=== PATIENT | male | born 1955 | race Caucasian/White ===

== ENCOUNTER 2024-04-13 14:53 | Emergency (ER) | payer MEDICARE, OTHER, SELFPAY ==
[2024-04-13 15:02] VITALS: BP 147/67
[2024-04-13 15:46] LABS: % Basophils 0.4 % (0-2); % Eosinophils 1.5 % (0-6); % Immature Granulocytes 0.3 % (0-0.5); % Lymphocytes 16.1 % (20.5-51.1); % Monocytes 7.6 % (1.7-9.3); % Neutrophils 74.1 % (42.2-75.2); Absolute Eosinophils 0.2 10^3/uL (0-0.7); Absolute Lymphocytes 1.8 10^3/uL (1.2-3.4); Absolute Monocytes 0.8 10^3/uL (0.1-0.6); Absolute Neutrophils 8.1 10^3/uL (1.4-6.5); Hematocrit 44.7 % (39.0-52.0); Mean Corp Hgb Conc. 33.6 g/dL (33.0-37.0); Mean Corpuscular Hgb 30.3 pg (27.0-31.0); Mean Corpuscular Volume 90.3 fL (80.0-94.0); Mean Platelet Volume 10.7 fL (7.4-10.4); Nucleated Red Blood Cells % 0 % (-); Platelet Count 175 10^3/uL (130-400); Red Blood Cell Count 4.95 10^6/uL (4.70-6.10); Red Cell Dist. Width 12.5 % (11.5-14.5); White Blood Cell Count 10.9 10^3/uL (4.8-10.8)
[2024-04-13 16:08] LABS: ALT (SGPT) 29 U/L (0-50); AST (SGOT) 25 U/L (17-59); Albumin 4.4 g/dl (3.5-5.0); Alkaline Phosphatase 113 U/L (38-126); Blood Urea Nitrogen 24 mg/dl (9-20); Carbon Dioxide 25 mmol/L (22-30); Chloride 102 mmol/L (98-107); Glucose 186 mg/dl (70-99); Potassium 4.4 mmol/L (3.5-5.1); Sodium 136 mmol/L (135-145); Total Bilirubin 0.7 mg/dl (0.2-1.3); Total Protein 7.1 g/dl (6.3-8.2); eGFR > 60.00
[2024-04-13 16:21] LABS: Troponin I < 0.012 ng/ml
[2024-04-13 16:48] VITALS: BP 125/55
[2024-04-13 17:00] VITALS: BP 105/60
--- NOTE | 2024-04-13 17:19 | ED.GENMED ---
History of Present Illness
General
Chief Complaint: Fainting/Passed Out
Source: patient and spouse
Time Seen by Provider: 04/13/24 17:06
History of Present Illness
History of Present Illness:
This patient is a 69-year-old male who was outdoors at an event for much of the day, states that he was drinking some water, walking around, and it was very hot. As he was waiting for the shuttle bus he started to feel like he might pass out
described as feeling lightheaded and his vision was starting to narrow. Anticipating that he might he gently lowered himself down to the ground. Within a few minutes his symptoms resolved. He denies associated syncope, head strike, neck pain,
headache, chest pain, palpitations, dyspnea, abdominal pain, nausea, vomiting, or other complaints. He states that as soon as he got into the ambulance he already started to feel better as he was in the cool air. He is asymptomatic at this time.
Past History
Past History
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
ED Past Surgical History: Orthopedic and Other (Hernia repair, partial nephrectomy)
Social History
Tobacco: Other (Occasional cigar)
Alcohol: Occasional
Drug: None
Personal:
Living: with family
Phy Exam
Physical Exam
Physical Exam:
GENERAL: Alert , in no apparent distress
EYE: pupils equal and reactive, EOMI, no nystagmus
NECK: Supple, no significant adenopathy.
ENT: o/p clr, mmm.
CARDIAC: Regular rate and rhythm .
LUNGS: Clear breath sounds bilaterally, no acute respiratory distress, no wheezes/rales/rhonchi
ABDOMEN: Soft, without focal tenderness, no r/g, no cvat
NEUROLOGICAL: Alert and oriented, no focal neuro deficits, cranial nerves II through XII intact, [id number] normal, motor 5 out of 5, sensory intact to light touch
SKIN: Warm and dry, skin intact.
MUSCULOSKELETAL: 1+ bilateral lower extremity edema, well perfused.
PSYCH: Normal and appropriate interaction.
Course
Orders/Labs/Results
Orders:
Orders
04/13/24 15:08
Electrocardiogram (*1) Urgent
Reason for Study: Syncope
04/13/24 15:09
EKG- Treatment ONCE
04/13/24 15:38
CMP [Comprehensive Metabolic Panel] Urgent
Complete Blood Count/With Diff Urgent
Troponin I Urgent
Abnormal Lab Results
04/13/24
15:38
WBC 10.9 H 10^3/uL
(4.8-10.8)
MPV 10.7 H fL
(7.4-10.4)
Absolute Neuts (auto) 8.1 H 10^3/uL
(1.4-6.5)
Absolute Monos (auto) 0.8 H 10^3/uL
(0.1-0.6)
Lymphocytes % 16.1 L %
(20.5-51.1)
BUN 24 H mg/dl
(9-20)
Glucose 186 H mg/dl
(70-99)
04/13/24 15:38
04/13/24 15:38
Vital Signs
Initial and Last Documented VS:
Initial Vital Signs
Temp Pulse Resp BP Pulse Ox
98.1 F 92 16 147/67 97
04/13/24 15:02 04/13/24 15:02 04/13/24 15:02 04/13/24 15:02 04/13/24 15:02
Last Documented Vital Signs
Temp Pulse Resp BP Pulse Ox
98.1 F 84 16 105/60 96
04/13/24 15:02 04/13/24 17:00 04/13/24 17:00 04/13/24 17:00 04/13/24 17:00
*Critical Care Note
Total Time (30-74mins, 75-104mins- exclusive of procedures): Not Applicable
Update Note
Update Note:
Patient presents to the Emergency Department with ____near syncope
Number and Complexity of Problems Addressed at the Encounter
� Chronic conditions affecting care:
� Acute Exacerbation and/or Progression of Chronic Illness:
� Differential Diagnosis includes: But not limited to electrolyte disorder, dehydration, heat exhaustion, etc. etc.
Amount and/or Complexity of Data to be Reviewed and Analyzed
� I performed an independent evaluation of and my interpretation is:
EKG: Read by me, normal sinus rhythm, normal rate, no acute ischemia
CT:
Xrays:
Laboratory Studies: Generally unremarkable, mild nonspecific leukocytosis, prerenal azotemia which may be consistent with mild dehydration
Other:
� Review of other/old records reveals:
� Clinical information was obtained by an independent historian: who is bedside and is an RN
� Prescriptions/Medications Considered but not given:
� Further testing considered but not performed:
Risk of Complications and/or Morbidity or Mortality of Patient Management
� Social determinants of health affecting care:
� Discussion with other providers (PCP, Hospitalists, Consultants, etc):
� Escalation of care including admission/observation vs risk of discharge considered: Patient is asymptomatic, workup here unremarkable strongly suspect mild dehydration plus minus mild heat related dizziness. I did offer IV
fluids however patient would prefer to be discharged and take fluids orally which is reasonable given his asymptomatic state and well appearance. Discussed with patient and importance of follow-up and reasons to return to the ER
ED Attending Note
-
Portions of this chart may have been created with voice recognition software.� Occasional wrong word or��sound alike� substitutions may have occurred due to the inherent limitations of voice recognition software.
Discharge Plan
Departure
Patient Disposition: Home (Routine Discharge)
Date of Disposition: 04/13/24
Time of Disposition: 17:19
Patient with high blood pressure during this ER visit?: Yes
Condition: Good
Discharge Problem:
Near syncope
Instructions: Near Fainting (DC), BLOOD PRESSURE
Activity Restrictions/Additional Instructions:
IF YOU DEVELOP CHEST PAIN, PALPITATIONS, SHORTNESS OF BREATH, FEVER, CHILLS, DIZZINESS, NUMBNESS, WEAKNESS, OR OTHER WORRISOME, PLEASE RETURN TO THE ER IMMEDIATELY
Discharge Date and Time
Print Language: TURKMEN
[2024-04-13 17:44] VITALS: BP 110/65
== END 2024-04-13 17:44 | disposition home or self-care (01) ==
LOC: EMR 14:53
PROVIDERS: Emergency Medicine; EMERGENCY PHYSICIAN Emergency Medicine; FAMILY PHYSICIAN Family Medicine
DX: R55 Syncope and collapse (principal)
CPT/HCPCS: 99284; 80053; 84484; 85025; 93005